=== PATIENT | male | born 1955 | race Caucasian/White ===

== ENCOUNTER 2017-08-28 05:37 | Emergency (ER) | payer OTHER ==
[~2017-08-28] VITALS: Ht 188 cm; Wt 236.2 kg
[2017-08-28] MEDS ORDERED: INSNOV SQ (05:59)
[2017-08-28] MEDS ORDERED: BUPR75TA8 PO (05:59)
[2017-08-28] MEDS ORDERED: INSLAN SQ (05:59)
[2017-08-28] MEDS ORDERED: METO10TA8 PO (05:59)
[2017-08-28] MEDS ORDERED: POTA8TAB7 PO (05:59)
[2017-08-28] MEDS ORDERED: IBUP-2077 PO (05:59)
[2017-08-28] MEDS ORDERED: GABA-529 PO (05:59)
[2017-08-28] MEDS ORDERED: SIMV20TA6 PO (05:59)
[2017-08-28] MEDS ORDERED: FURO40TA5 PO (05:59)
[2017-08-28 06:58] LABS: BASOPHILS % (AUTO) 0.6 % (0.0-2.0); EOSINOPHILS % (AUTO) 0.9 % (1.0-6.0); HEMATOCRIT 34.8 % (41-53); HEMOGLOBIN 11.6 g/dL (13.5-17.5); LYMPHOCYTES # (AUTO) 0.8 K/uL (1.0-4.8); LYMPHOCYTES % (AUTO) 4.1 % (22.0-44.0); MEAN CORPUSCULAR HEMOGLOBIN 27.3 pg (26.0-34.0); MEAN CORPUSCULAR HGB CONC 33.4 G/dL (31.0-37.0); MEAN CORPUSCULAR VOLUME 82 fL (80-100); MONOCYTES # (AUTO) 1.3 K/uL (0.1-1.0); MONOCYTES % (AUTO) 7.1 % (2.0-9.0); NEUTROPHILS # (AUTO) 16.1 K/uL (1.8-7.7); PLATELET COUNT (AUTO) 299 K/uL (150-450); RED BLOOD CELL COUNT(AUTO) 4.25 MIL/uL (4.50-5.90); RED CELL DISTRIBUTION WIDTH 14.8 % (11.5-14.5)
[2017-08-28 06:59] LABS: NEUTROPHILS % (AUTO) 87.3 % (40.0-70.0)
[2017-08-28 08:14] LABS: ALBUMIN 2.1 g/dL (3.4-5.0); BILIRUBIN,TOTAL 0.4 mg/dL (0.1-1.0); CREATININE 3.05 mg/dL (0.60-1.30); TOTAL PROTEIN, SERUM 6.4 g/dL (6.4-8.2)
[2017-08-28 08:19] LABS: POTASSIUM 2.4 mmol/L (3.5-5.1)
[2017-08-28] MEDS ORDERED: POTASSIUM CHLORIDE 20 MEQ ER TABLET PO ONE (08:30)
[2017-08-28 10:15] VITALS: BP 117/54
== END 2017-08-28 11:07 | disposition home or self-care (01) ==
LOC: EMS 05:39
DX: M25.512 Pain in left shoulder (principal); E87.6 Hypokalemia; J45.909 Unspecified asthma, uncomplicated; F32.9 Major depressive disorder, single episode, unspecified; E11.9 Type 2 diabetes mellitus without complications; E78.00 Pure hypercholesterolemia, unspecified; G47.30 Sleep apnea, unspecified; Z79.4 Long term (current) use of insulin; Z79.899 Other long term (current) drug therapy; Z82.49 Family history of ischemic heart disease and other diseases of the circulatory system; Z83.3 Family history of diabetes mellitus
CPT/HCPCS: 99285

== ENCOUNTER 2017-09-07 15:12 | Emergency (ER) | payer OTHER ==
[~2017-09-07] VITALS: Ht 172.7 cm; Wt 272.7 kg
[~2017-09-07 15:12] MED LIST: BUPR75TA8 PO; FURO40TA5 PO; GABA-529 PO; IBUP-2077 PO; INSLAN SQ; INSNOV SQ; METO10TA8 PO; NYST15PO3 TP; POTA8TAB7 PO; SIMV20TA6 PO; VANC1.2514 IVPB
[2017-09-07 16:02] LABS: GLUCOSE,POINT OF CARE 252 MG/DL (70-110)
[2017-09-07 16:38] VITALS: BP 125/57
[2017-09-07] MEDS ORDERED: KDUR20 PO (16:42)
== END 2017-09-07 19:03 | disposition home or self-care (01) ==
LOC: EMS 15:13
DX: E66.9 Obesity, unspecified (principal); E11.9 Type 2 diabetes mellitus without complications; E78.00 Pure hypercholesterolemia, unspecified; F32.9 Major depressive disorder, single episode, unspecified; G47.30 Sleep apnea, unspecified; I11.0 Hypertensive heart disease with heart failure; I50.9 Heart failure, unspecified; J45.909 Unspecified asthma, uncomplicated; Z79.4 Long term (current) use of insulin; Z88.8 Allergy status to other drugs, medicaments and biological substances; Z79.899 Other long term (current) drug therapy
CPT/HCPCS: 82962; 99283